=== PATIENT | male | born 1930 | race Caucasian/White ===

== ENCOUNTER 2016-12-04 14:43 | Inpatient (IN) | payer MEDICARE, BC ==
[~2016-12-04] VITALS: Ht 152.4 cm; Wt 75.0 kg
--- NOTE | ~2016-12-04 | CN ---
Consultation Report [facility] [address] [place]. [address] NAME: ANJELICA LINDQUIST : 32 STATUS : ADM IN PAT#: [id number] AGE: 86 ADM/REG DATE : 12/04/16 MR#: [id number] REPORT SERV DATE: 12/05/16 DICTATED BY: DATE: REPORT STATUS : Draft TRANSCRIBED BY: MODL DATE: 12/05/16 NEUROLOGY CONSULTATION DATE OF CONSULTATION: 12/05/2016 REASON FOR CONSULT: New onset seizure. HISTORY OF PRESENT ILLNESS: This is an 86-year-old male with recent pacemaker placement on 11/27/2016. The patient was doing well and subsequently discharged home when the patient subsequently felt pleuritic chest pain. The patient came to the hospital for evaluation and was noted to have possible pacer wire dislodged and was admitted to the hospital, however, while in the emergency room, the patient has had acute episodes of feeling dizzy, described the sensation as room spinning and vertigo type of sensation with associated nausea and vomiting. The patient subsequently lost consciousness and was noted to have witnessed generalized tonic colonic kind of seizure and the patient reports regaining consciousness about 10 to 15 minutes later with associated drowsiness. The patient denies any current symptoms and denies any weakness or numbness. At the time of evaluation, the patient denies previous seizure in the past, however, reports a history of longstanding atrial fibrillation with apparent multiple episodes of loss of consciousness, previously attributed to atrial fibrillation. 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 The patient prior to the hospitalization was not noted to have any other recent illness, fever, chills, nausea, vomiting, chest pain, or shortness of breath and no recent changes in medication was noted. ALLERGIES: THE PATIENT REPORTS ALLERGY TO CODEINE WELL HYDROCODONE. REVIEW OF SYSTEMS: Negative except for those mentioned in the HPI. SOCIAL HISTORY: There is a question of previous tobacco usage, but no current alcohol or illicit drug usage. No current tobacco usage. PAST MEDICAL HISTORY: The patient's past medical history is significant for tachycardia, bradycardia as well as a history of chronic atrial fibrillation, previously on Eliquis anticoagulation with the patient has had history of recent pacemaker placement as well as dislodged pacer wire from the recent pacemaker placement. The patient's CT scan does demonstrate some previous strokes. Also the patient denies any symptomatic strokes in the past. HOME MEDICATIONS: The patient's home medications consist of Tylenol; Norvasc; Eliquis; aspirin; Lipitor; vitamin D3; Lasix; Antivert; omeprazole; potassium; and Flomax. PHYSICAL EXAMINATION: Consultation Report [facility] [address] [place]. [address] NAME: ANJELICA LINDQUIST : 32 STATUS : ADM IN PAT#: [id number] AGE: 86 ADM/REG DATE : 12/04/16 MR#: [id number] REPORT SERV DATE: 12/05/16 DICTATED BY: DATE: REPORT STATUS : Draft TRANSCRIBED BY: MODL DATE: 12/05/16 VITAL SIGNS: At the time of evaluation, the patient was noted to have overnight vital signs with T-max of 97.8, heart rate of 62 to 85, respirations of 17 to 29, and blood pressure of 90 to 122 over 44 to 58. GENERAL: The patient is well developed, well nourished, in no acute distress. CARDIOVASCULAR EXAMINATION: Regular rate and rhythm. No carotid bruits were otherwise auscultated. PULMONARY: Examination was clear to auscultation bilaterally. NEUROLOGICAL EXAMINATION: Generally, the patient is alert, oriented to person, place, year, and month. Follows simple and 2-step commands. No dysarthria. No aphasia. Intact registration. Mild difficulties with recall. Cranial nerves 2 through 12, pupils equal, round, and reactive to light. Extraocular eye movement was noted to be intact with intact ekmqt-yc-gkpekq response. Reports symmetrical sensation, was noted to have mild facial asymmetry. Midline tongue. Normal palatal movement. Mild decreased hearing in bilateral ears. The patient demonstrated 4+/5 left upper extremity and left lower extremity strength with the patient demonstrated 5/5 right upper and right lower extremity strength which the patient reports is chronic; 1+ reflexes throughout. Reports symmetrical sensation in bilateral upper and lower extremities. Normal gggcjb-dw-wvqj examination without ataxia. Gait was deferred secondary to echocardiogram at the time of evaluation. LABORATORY STUDIES: Demonstrated white blood cell count of 16.1, hemoglobin of 10.6, hematocrit of 31.1, and platelet count of 239. Chemistry panel: Sodium 137, potassium 5.0, chloride 104, bicarb 20, BUN of 43, creatinine of 2.52, glucose of 196, calcium of 8.1, and magnesium 2.2. Urinalysis demonstrated negative leukocyte esterase, negative nitrite. CT scan of the brain from 12/04/2016, on hospital admission was reviewed. The patient does demonstrate mild generalized atrophy as well as previous stroke and possible subacute left parietal stroke. No hemorrhage was otherwise noted. IMPRESSION: 1. Seizure. The patient complained of vertigo sensation prior. 2. Clinical seizures. The patient denies any prior history of seizure disorders in the past and no history of seizure medication usage. The patient currently does have pacer wire dislodged and we will have Eliquis on hold for 48 hours prior to surgical intervention. Question of possible symptomatic seizures. We will check EEG. We will start the patient on Keppra 500 mg IV b.i.d. for now. RECOMMENDATIONS: 1. Keppra 500 mg IV b.i.d. 2. EEG. 3. Please consider possible heparin drip while the patient is off Eliquis for CVA prevention. [facility]/JASMINA Consultation Report [place] [id number] [facility] [place]. [address] NAME: ANJELICA LINDQUIST : 32 STATUS : ADM IN [facility]#: [id number] AGE: 86 ADM/REG DATE : 12/04/16 MR#: [id number] REPORT SERV DATE: 12/05/16 DICTATED BY: DATE: REPORT STATUS : Draft TRANSCRIBED BY: JASMINA DATE: 12/05/16 Cuauhtemoc Bradshaw MD / [id number] CC: Yoshi Worthy Jr., M.D.
--- NOTE | ~2016-12-04 | HP ---
History And Physical [address] [place]. [address] NAME: ANJELICA LINDQUIST : 32 STATUS : ADM IN [facility]#: [id number] AGE: 86 ADM/REG DATE : 12/04/16 MR#: [id number] REPORT SERV DATE: 12/04/16 DICTATED BY: ERROL JERONIMO JR. DATE: 12/04/16 REPORT STATUS : Draft TRANSCRIBED BY: MODAshley DATE: 12/04/16 DATE OF ADMISSION: 12/04/2016 [facility] ROUTER SETTER: Ross Sousa M.D. EP: Dr. Pickard. REASON FOR CONSULTATION: Consultation in emergency room requested regarding abnormal EKG with pacemaker malfunction. HISTORY OF PRESENT ILLNESS: 86-year-old white male with tachycardia, bradycardia, history of chronic atrial fibrillation, currently on Eliquis anticoagulation. CT of the brain today showed old strokes and possibly a recent stroke. No neurological deficits to go along with anything acute neurologically. He had an uneventful placement of a right ventricular lead Medtronic VVI mode 11/27/2016. Postprocedure chest x-ray unremarkable. Chest x-ray today shows movement of the lead laterally to the left and new blunting of costophrenic angle consistent with pleural effusion reaction, etc. He was doing well post pacemaker procedure until last night when he became aware of a sharp pleuritic pain at the left lower chest area. Hurt with cough and deep breathing. This morning, he became dizzy and presyncopal, and EMS was summoned. He is normally hypertensive, but blood pressure today was 108/65. Rhythm is irregular and chronic atrial fibrillation, and the pacemaker is under sensing and not pacing. ALLERGIES: TO CODEINE AND HYDROCODONE. SOCIAL HISTORY: ? old cigarette smoker. No illicit drugs. MEDICATIONS: Home medication list reviewed. SOCIAL HISTORY: Supportive family. REVIEW OF SYSTEMS: As above. All else negative or noncontributory. PHYSICAL EXAMINATION: PHYSICAL EXAMINATION: VITAL SIGNS: Blood pressure 108/65, pulse is irregularly irregular with rate controlled atrial fibrillation, respirations 18, afebrile, and saturation 98% on room air. HEENT: No xanthelasma. NECK: No JVD at 30 degrees, no thyromegaly, no carotid bruit. LUNGS: Clear to auscultation and percussion. History And Physical [address] [place]. [address] NAME: ANJELICA LINDQUIST : 32 STATUS : ADM IN [facility]#: [id number] AGE: 86 ADM/REG DATE : 12/04/16 MR#: [id number] REPORT SERV DATE: 12/04/16 DICTATED BY: ERROL JERONIMO JR. DATE: 12/04/16 REPORT STATUS : Draft TRANSCRIBED BY: MODAshley DATE: 12/04/16 COR: No thrills, heaves, normal S1, S2. No gallop. No rub. No murmur. ABD: Soft, nontender, no hepatosplenomegaly, no mass. EXT: Without edema or pulse deficit. MS: Back without spine or costovertebral angle tenderness. NEURO: Symmetric findings. DISCUSSION: Pleuritic chest pain last night followed by a presyncopal episode this morning. EMS summoned. The patient is now in the emergency room with EKG showing undersensing and lack of pacing of the right ventricular lead with a chest x-ray, compared to the postprocedure 11/27/2016 film showing lateral displacement of the lead with new fluid/pleural reaction in the left base. CT scan has been ordered, and I have contacted CV Surgery to be aware of the situation and to follow him tonight as needed. Discussed with Dr. Pickard as well. We will hold Eliquis. Keep him n.p.o. after midnight. CCU observation tonight. Watch for signs of pericardial tamponade. Currently, no evidence of acute pericardial tamponade. Echocardiogram in the morning. LISA/JASMINA Errol Jeronimo Jr., M.D. / [id number] CC: Yoshi Worthy Jr., M.D.
--- NOTE | ~2016-12-04 | CN ---
Consultation Report [facility] [address] [place]. [address] NAME: ANJELICA LINDQUIST : 32 STATUS : ADM IN PAT#: [id number] AGE: 86 ADM/REG DATE : 12/04/16 MR#: [id number] REPORT SERV DATE: 12/06/16 DICTATED BY: RUBEN CAPUTO DATE: 12/06/16 REPORT STATUS : Draft TRANSCRIBED BY: MODL DATE: 12/06/16 DATE OF CONSULTATION: HISTORY OF PRESENT ILLNESS: An 86-year-old white male, we are asked to come see postoperatively for ventilatory management as well as complexity of medical care. The patient was admitted on 12/04/2016. He was found to have a left-sided hemothorax and acute blood loss anemia from a pacer lead from the RV perforating the myocardium into the pericardial and pleural space. He had an uneventful pacer placed on 11/27/2016 and was able to go home when he presented with the above problems. The patient has significant blood loss anemia with hemoglobin going down to 5. He had received a total of, my count, 5 units of packed red blood cells. He had the pacer interrogated initially, which was reporting under sensing and also had a complication of a seizure on this admission as well, and Neurology was following and put the patient on Keppra. A delay for surgery did occur to allow the Eliquis to get out of the system that he was on. By 12/05/2016, he had removal of the RV lead via mini left thoracotomy, and he had a left chest tube placed in the left pleural space with bloody evacuated. The patient is still on the ventilator currently. He does have complication also with difficulty to place Sarkar and Urology tried to place it but unsuccessful. They suspect a hypospadias along with his BPH, which is complicating things. He is supposed to go to IR for a suprapubic catheter. Current drips include Precedex, dopamine for bradycardia, insulin, propofol. He does have a right radial art line and a right internal jugular vein triple-lumen catheter. White blood cell count is elevated, but no evidence of fever. REVIEW OF SYSTEMS: Unable to obtain. PAST MEDICAL HISTORY: Atrial fibrillation with history of pacemaker placed 11/27/2016, chronic kidney disease, hypertension, dyslipidemia, BPH. ALLERGIES: CODEINE, HYDROCODONE. HOME MEDICATIONS: Reviewed. SOCIAL HISTORY: Former smoker. Lives in [place], [place]. 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 FAMILY HISTORY: No evidence of renal disease in the family. PHYSICAL EXAMINATION: VITAL SIGNS: Per nursing flow sheet. GENERAL: In no acute distress. NEURO: Sedated. HEENT: Normocephalic and atraumatic. NECK: Trachea midline. Consultation Report [address] [place]. [address] NAME: ANJELICA LINDQUIST : 32 STATUS : ADM IN [facility]#: [id number] AGE: 86 ADM/REG DATE : 12/04/16 MR#: [id number] REPORT SERV DATE: 12/06/16 DICTATED BY: RUBEN CAPUTO DATE: 12/06/16 REPORT STATUS : Draft TRANSCRIBED BY: JASMINA DATE: 12/06/16 HEART: Bradycardia with atrial fibrillation. No obvious murmurs. CHEST: There is a left chest tube in place draining bloody looking fluid. LUNGS: Clear anteriorly. No wheezes. Ventilator settings reviewed. GI: Soft, nontender, nondistended. EXTREMITIES: No obvious edema or cyanosis. : There is no Sarkar in place. LABORATORY DATA: Labs and radiology studies reviewed. ASSESSMENT AND PLAN: 1. Postoperative respiratory failure. 2. Myocardial perforation secondary to pacer wire. 3. Hemothorax. 4. Bradycardia. 5. Atrial fibrillation. 6. Thyroid nodule. 7. Acute on chronic kidney disease. 8. Acute blood loss anemia. 9. Leukocytosis. 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 11.Old stroke. 12.Seizure x1. Provided supportive respiratory care for now. Currently comfortable on propofol. Supposed to go to Interventional Radiology for a suprapubic catheter. We will work towards extubation with breathing trial starting tomorrow. Follow with chest x-ray in the morning. Diuretics and volume status are being taken care by Nephrology. I will order a thyroid ultrasound given the large thyroid nodule, which will likely to have further workup as an outpatient. Current H and H are stable. No signs of active infection at this point in time despite the leukocytosis. We will follow this. CEP/MODL Ruben Caputo DO / [id number] CC: Senthil Jeronimo Jr., M.D.
--- NOTE | ~2016-12-04 | EEG ---
Electroencephalogram [facility] [address] [place]. [address] NAME: ANJELICA LINDQUIST : 32 STATUS : ADM IN PAT#: [id number] AGE: 86 ADM/REG DATE : 12/04/16 MR#: [id number] REPORT SERV DATE: 12/05/16 DICTATED BY: DATE: REPORT STATUS : Draft TRANSCRIBED BY: MODL DATE: 12/05/16 CLINICAL INDICATIONS: Seizure. DISCUSSION: This EEG was performed using 10/20 electrode placement system. During the EEG study, symmetric background activity was noted with predominant occipital rhythm of roughly 9-10 hertz. Photic stimulation was performed with appropriate driving response. Hyperventilation was not performed secondary to patient's cardiac history. During the EEG study, the patient achieved drowsy state. No focal abnormalities, seizure activity, or seizure discharge was otherwise noted. INTERPRETATION: This EEG study obtained during awake and drowsy state may be considered within normal limits. No focal abnormalities, seizure activity, or seizure discharge was seen. Of note, normal EEG does not preclude the diagnosis of seizure disorder. Clinical correlation is recommended. [facility]/MODL Cuauhtemoc Bradshaw MD / [id number] CC: Yoshi Worthy Jr., M.D.
--- NOTE | ~2016-12-04 | CN ---
Consultation Report [facility] [address] [place]. [address] NAME: ANJELICA LINDQUIST : 32 STATUS : ADM IN [facility]#: [id number] AGE: 86 ADM/REG DATE : 12/04/16 MR#: [id number] REPORT SERV DATE: 12/06/16 DICTATED BY: SHAKA HALEY JR. DATE: 12/06/16 REPORT STATUS : Draft TRANSCRIBED BY: MODAshley DATE: 12/06/16 CONSULTATION DATE OF CONSULTATION: 12/06/2016 CHIEF COMPLAINT: Urinary retention, inability to place Sarkar. HISTORY OF PRESENT ILLNESS: Mr. Lindquist is an 86-year-old gentleman who is followed generally in [facility] by Nephrology, whose baseline creatinine has been between 1.3 and 1.6. His creatinine jumped up to 2.5 last evening. He underwent pacemaker placement on 11/27/2016. He was readmitted last night with acute blood loss anemia. CT scan showed a new left hemothorax with a pacing wire in the pleural space. He was taken to the operating room, and at that time, a Sarkar catheter was attempted, but was unsuccessful. I was consulted postoperatively to place a Sarkar catheter. I did speak to his son about his past urologic history, and according to the patient's son, he sees Dr. Weinberg in [place] for his urologic care. He does take tamsulosin for BPH. PAST MEDICAL HISTORY: Significant for chronic kidney disease, atrial fibrillation, hypertension, hyperlipidemia, BPH without TURP in the past. HOME MEDICATIONS: Norvasc, Eliquis, aspirin, Lipitor, vitamin D3, Lasix, meclizine, Prilosec, potassium, and Flomax. FAMILY HISTORY: Essentially negative. SOCIAL HISTORY: He is a remote smoker. He is a . He lives in [place], [place]. He is retired from the [employer]. REVIEW OF SYSTEMS: Unable to be obtained due patient being intubated currently. PHYSICAL EXAMINATION: VITAL SIGNS: He is afebrile, and his vital signs are stable. HEENT: Normocephalic and atraumatic. He is intubated and resting quietly. NECK: Symmetric. CHEST: Clear to auscultation bilaterally. HEART: Regular rate and rhythm. ABDOMEN: Soft, nontender, nondistended without palpable hernias. He does not have a palpable bladder. EXTREMITIES: Warm without cyanosis, clubbing, or edema. GENITOURINARY: The penile exam reveals what appears to be a hypospadias deformity. I was unable to identify a meatus of the urethra. I attempted to cannulate this with lacrimal duct probes without success. I am unsure if this was caused by previous attempts at Sarkar catheter placement or if this is his baseline meatus, however, without the ability to Consultation Report [address] [place]. [address] NAME: ANJELICA LINDQUIST : 32 STATUS : ADM IN [facility]#: [id number] AGE: 86 ADM/REG DATE : 12/04/16 MR#: [id number] REPORT SERV DATE: 12/06/16 DICTATED BY: SHAKA HALEY JR. DATE: 12/06/16 REPORT STATUS : Draft TRANSCRIBED BY: MODL DATE: 12/06/16 identify a meatus or place a Sarkar, I was unable to proceed. LABORATORY DATA: Electrolytes are within normal limits. Creatinine 2.5, platelet count 239, white count 16,000, hemoglobin 10.6. ASSESSMENT: Urinary retention with the need for diuresis and urine output monitoring. RECOMMENDATIONS: I spoke to the patient's family and informed them of the situation and recommended that he have a suprapubic tube temporarily until we were able to extubate him and manage his other acute condition, and then manage his meatal issue at a later date either here in [place] or with his urologist in [place], Dr. Weinberg. I spoke to Dr. Josué Troncoso in the Interventional Radiology Department. They will proceed with suprapubic tube placement under either CT or ultrasound guidance today. DANIA/JASMINA Shaka Halye Jr., M.D. / [id number] CC: Senthil Jeronimo Jr., M.D.
--- NOTE | ~2016-12-04 | OP ---
Record Of Operation [facility] [address] [place]. [address] NAME: ANJELICA LINDQUIST : 32 STATUS : DIS IN PAT#: [id number] AGE: 86 ADM/REG DATE : 12/04/16 MR#: [id number] REPORT SERV DATE: 12/13/16 DICTATED BY: VIC RODRIGUEZ DATE: 12/12/16 REPORT STATUS : Draft TRANSCRIBED BY: MODL DATE: 12/12/16 DATE OF PROCEDURE: 12/05/2016 PREOPERATIVE DIAGNOSIS: Right ventricular pacer lead migrating into left pleural space with hemorrhagic left pleural effusion. POSTOPERATIVE DIAGNOSIS: Right ventricular pacer lead migrating into left pleural space with hemorrhagic left pleural effusion. PROCEDURE: Left anterior mini thoracotomy with removal of pacer lead and over-sew of right ventricular epicardial bleed with chest tube placement and evacuation of left hemothorax. STOCK CRANE OPERATOR: Tabatha. ANESTHESIOLOGIST: Tyson Roque M.D. COMPLICATIONS: None. CHEST TUBES: X1. CONDITION: Improved to ICU. HISTORY: The patient is an 86-year-old gentleman, who had undergone a single chamber ventricular permanent pacemaker by Dr. Pickard at [facility] approximately 1 week prior to intervention. He had presented to the emergency department on the evening of the with left pleuritic chest pain. CT scan showed a left hemothorax and the pacer lead migrating through the right ventricle and into the left pleural space. The patient was extremely hemodynamically stable at this point with a good hemoglobin. The patient was on Eliquis and decision was made to wait 48 hours prior to surgery. However, the patient had a progressive drop in his hemoglobin and was brought emergently to the operating room on the evening of the . PROCEDURE IN DETAIL: After informed consent was obtained, the patient was brought to the operating room, laid in supine position. General anesthesia was induced. The patient was prepped and draped in normal fashion. Incision was made over the approximate 9th to 10th intercostal space after using fluoroscopic guidance to pinpoint the lead placement. A rib knife blade polisher was placed and the lead encountered traversing through the epicardium of the right ventricle through the pericardial space, the pericardium was adherent to the epicardium, and the lead was out into the left pleural space. There was copious amount of clotted blood in the left chest. Pacer pocket was then opened. A pursestring pledgeted suture was placed around the exit site from the pericardium and the lead removed and stitch tied down with good surgical hemostasis. As much clotted blood from the left chest was then evacuated both directly and through suction irrigation. An angled left chest tube was placed. The skin and subcuticular tissue were then closed over the rib space and the pacer pocket closed as well. Overall, the patient tolerated procedure well, was transported to the ICU in improved condition. Record Of Operation [address] [place]. [address] NAME: ANJELICA LINDQUIST : 32 STATUS : DIS IN PAT#: [id number] AGE: 86 ADM/REG DATE : 12/04/16 MR#: [id number] REPORT SERV DATE: 12/13/16 DICTATED BY: VIC RODRIGUEZ DATE: 12/12/16 REPORT STATUS : Draft TRANSCRIBED BY: JASMINA DATE: 12/12/16 CCR/JASMINA Vic Rodriguez M.D. / [id number] CC: Yoshi Worthy Jr., M.D. [facility]
--- NOTE | ~2016-12-04 | CN ---
Consultation Report [facility] [address] [place]. [address] NAME: ANJELICA LINDQUIST : 34 STATUS : ADM IN PAT#: [id number] AGE: 86 ADM/REG DATE : 12/04/16 MR#: [id number] REPORT SERV DATE: 12/06/16 DICTATED BY: KIA KASPER DATE: 12/05/16 REPORT STATUS : Draft TRANSCRIBED BY: MODL DATE: 12/05/16 NEPHROLOGY CONSULT DATE OF CONSULTATION: 12/05/2016 REQUESTING PHYSICIAN: Dr. Pickard. REASON FOR CONSULT: Chronic kidney disease with acute kidney injury. HISTORY OF PRESENT ILLNESS: Mr. Lindquist is a very pleasant 86-year-old white male, who is followed by Dr. Schmidt of Nephrology in [facility]. He appears to have a baseline creatinine between 1.3 and 1.6. Records are not available at the time of today's dictation. He underwent pacemaker placement on 11/27/2016 when his creatinine was 1.6. He was admitted last night with acute blood loss anemia. CT scan showed a new left hemothorax with a pacing wire in the pleural space. His creatinine which was 1.6 last night is 2.5 this morning. His hemoglobin which was 13.4 on 11/27/2016 is now 10.6. He is not on pressors, but did have some relative hypotension upon presentation with systolic blood pressures in the low 100s. Urinalysis has shown no blood or protein. INR today is 1.6. PAST MEDICAL HISTORY: 1. Chronic kidney disease, baseline creatinine 1.3 to 1.6, followed by Dr. Schmidt in [place], [place]. 2. Atrial fibrillation, on Eliquis, status post pacemaker on 11/27/2016. 3. Hypertension. 4. Hyperlipidemia. 5. BPH without TURP. HOME MEDICATIONS: Norvasc 10 mg at bedtime, Eliquis 5 mg b.i.d., aspirin 81 mg daily, Lipitor 10 mg at bedtime, vitamin D3, Lasix 40 mg daily, meclizine, Prilosec, potassium, and Flomax. FAMILY HISTORY: No ESRD. SOCIAL HISTORY: Former remote smoker. . Lives in [place], [place]. 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 REVIEW OF SYSTEMS: Please see HPI for pertinent details. PHYSICAL EXAMINATION: VITAL SIGNS: Temperature 97.6, pulse 75, respirations 27, blood pressure 132/61, 98% sat 1 L per nasal cannula, 925 mL of intake with 400 mL of output recorded. GENERAL: He is a pleasant elderly white male, who is awake, alert, oriented, cooperative Consultation Report [address] [place]. [address] NAME: ANJELICA LINDQUIST : 34 STATUS : ADM IN [facility]#: [id number] AGE: 86 ADM/REG DATE : 12/04/16 MR#: [id number] REPORT SERV DATE: 12/06/16 DICTATED BY: KIA KASPER DATE: 12/05/16 REPORT STATUS : Draft TRANSCRIBED BY: JASMINA DATE: 12/05/16 with the exam. NEURO: Grossly nonfocal. He is in no distress. Lying in a hospital bed, accompanied by family. HEENT: Sclerae without icterus. Conjunctivae not injected. Oropharynx is clear. Mucous membranes are dry. NECK: No JVD. LUNGS: He has bilateral rhonchi with decreased breath sounds on the left side. No dyspnea, but tachypnea is noted. CHEST: He has a paced rhythm without rub. Left chest pacemaker site is clean. ABDOMEN: Soft, nontender, nondistended. Bowel sounds present throughout. No rebound, guarding, peritoneal signs. EXTREMITIES: Show no edema. SKIN: Shows no rash. : Deferred. There is no Sarkar catheter. MUSCULOSKELETAL: Shows no tenosynovitis or gout. Mood and affect are appropriate. LABORATORY DATA: Sodium 137, potassium 5, bicarb 20, anion gap 13, BUN 43, creatinine 2.5, GFR 23, calcium 8.1, magnesium 2.2, albumin 3.7. Liver function tests normal. White count 58051 without eos, hemoglobin 10.6, platelets 239,000. INR 1.6. ASSESSMENT AND PLAN: Mr. Lindquist has chronic kidney disease with baseline creatinine of 1.3 to 1.6, presents with borderline oliguric acute kidney injury in the setting of acute blood loss anemia, left hemothorax, status post pacemaker, 11/27/2016, benign prostatic hyperplasia, new onset seizures, non-anion gap metabolic acidosis, and leukocytosis. I suspect his acute kidney injury is most likely related to acute blood loss anemia causing acute tubular necrosis and renal hypoperfusion due to relative hypotension on admission. Decreased IV fluids challenge with Bumex dose, bicarb IV, check bladder scan. No ERLINDA inhibitor or ARB at this time. Watch labs. Supportive care. Avoid nephrotoxic medications. Family updated in room and agree with treatment plan. Hopefully, dialysis can be avoided. We will follow closely with you. Appreciate consult. JOSE/JASMINA Kia Kasper M.D. / [id number] CC: Yoshi Worthy Jr., M.D. Consultation Report [address] [place]. [address] NAME: ANJELICA LINDQUIST : 34 STATUS : ADM IN [facility]#: [id number] AGE: 86 ADM/REG DATE : 12/04/16 MR#: [id number] REPORT SERV DATE: 12/06/16 DICTATED BY: KIA KASPER DATE: 12/05/16 REPORT STATUS : Draft TRANSCRIBED BY: JASMINA DATE: 12/05/16 Robbie Schmidt MD
[~2016-12-04 14:43] MED LIST: ELIQUIS 5 MG TAB5 MG PO; FLOMAX4 PO; KLOR-CON M2020 MEQ PO; L40 PO; LIPITOR10 PO; MCZ25 PO; NORV10 PO; PRILO PO; ULTRAM50 PO; VITAMIN D31000 UNIT PO
[2016-12-04 17:17] LABS: ASCORBIC ACID (UR NOT ORDER) NEG (NEG); BILIRUBIN, URINE NEGATIVE (NEG); ER URINALYSIS TAT 0 Hrs 16 Mins; KETONE, URINE NEGATIVE (NEG); LEUKOCYTE ESTERASE(NOT OR NEG (NEG); NITRITE (URINE) NEG (NEG); WBC (NOT ORDERED) (RFLEX) 3 (0-5)
[2016-12-04 17:50] LABS: BASOPHILS 0.1 %; BASOPHILS ABSOLUTE 0.01 10/3/uL (0.0-0.16); EOSINOPHILS 0.3 %; EOSINOPHILS ABSOLUTE 0.03 10/3/uL (0.0-0.53); ER CBC TAT 0 Hrs 03 Mins; HEMATOCRIT 34.4 % (40.0-51.0); HEMOGLOBIN 11.6 g/dL (13.6-17.8); IMMATURE GRANULOCYTES 0.3 %; IMMATURE GRANULOCYTES ABSOLUTE 0.03 10/3/uL (0.0-0.11); LYMPHOCYTES 11.4 %; LYMPHOCYTES ABSOLUTE 1.07 10/3/uL (0.67-4.30); MANUAL DIFF NO %; MEAN CORPUS HGB CONC 33.7 g/dL (32.0-36.0); MEAN CORPUSCULAR HEMOGLOB 31.8 pg (26.0-34.0); MEAN CORPUSCULAR VOLUME 94.2 fL (80-100); MONOCYTES 5.4 %; MONOCYTES ABSOLUTE 0.51 10/3/uL (0.21-1.20); NEUTROPHILS 82.5 %; NEUTROPHILS ABSOLUTE 7.76 10/3/uL (2.02-8.40); PLATELET COUNT 239 10/3/uL (150-400); RBC DISTRIBUTION WIDTH 12.7 % (12.0-16.0); RED CELL COUNT 3.65 10/6/uL (4.7-6.1); WHITE BLOOD CELLS 9.4 10/3/uL (4.5-10.5)
[2016-12-04 18:01] LABS: INTERNATIONAL NORMAL RATI 1.5 UNITS (-); PARTIAL THROMBO TIME 35.2 SEC (22.5-37.2); PROTIME (NOT ORD) 18.3 SEC (12.0-14.5)
[2016-12-04 18:06] LABS: ALBUMIN 3.7 G/DL (3.5-5.0); DIRECT BILIRUBIN 0.2 MG/DL (0.0-0.4); INDIRECT BILIRUBIN(NOT ORDER) 0.6 MG/DL (0.1-0.9); TOTAL BILIRUBIN 0.8 MG/DL (0-1.2); TOTAL PROTEIN 8.4 G/DL (6.0-8.5)
[2016-12-04 18:08] LABS: CALCIUM, SERUM 8.6 MG/DL (8.5-10.4); CHEST PAIN PROFILE TAT 0 Hrs 21 Mins; CHLORIDE, SERUM 102 MMOL/L (96-112); CO2 (CARBON DIOXIDE) 26 MMOL/L (24-34); CREATININE 1.65 MG/DL (0.70-1.30); GFR AFRICAN AMERICAN 44 ML/MIN (>=60); GFR NON AFRICAN AMERICAN 38 ML/MIN (>=60); GLUCOSE, SERUM 138 MG/DL (60-99); POTASSIUM, SERUM 4.6 MMOL/L (3.5-5.3); SODIUM, SERUM 138 MMOL/L (135-148); TROPONIN I <0.02 NG/ML (<0.05)
[2016-12-04 18:09] LABS: BUN (BLOOD UREA NITROGEN) 33 MG/DL (6-23)
[2016-12-04] MEDS ORDERED: HALF81 PO (18:13)
[2016-12-04] MEDS ORDERED: ACET500CAP PO (18:16)
[2016-12-05 03:33] LABS: HEMOGLOBIN 10.4 g/dL (13.6-17.8)
[2016-12-05 03:34] LABS: HEMATOCRIT 29.6 % (40.0-51.0)
[2016-12-05 06:49] LABS: BASOPHILS 0.1 %; BASOPHILS ABSOLUTE 0.01 10/3/uL (0.0-0.16); EOSINOPHILS 0 %; HEMATOCRIT 31.1 % (40.0-51.0); HEMOGLOBIN 10.6 g/dL (13.6-17.8); IMMATURE GRANULOCYTES 0.6 %; IMMATURE GRANULOCYTES ABSOLUTE 0.09 10/3/uL (0.0-0.11); LYMPHOCYTES 7.2 %; LYMPHOCYTES ABSOLUTE 1.15 10/3/uL (0.67-4.30); MANUAL DIFF NO %; MEAN CORPUS HGB CONC 34.1 g/dL (32.0-36.0); MEAN CORPUSCULAR HEMOGLOB 31.1 pg (26.0-34.0); MEAN CORPUSCULAR VOLUME 91.2 fL (80-100); MEAN PLATELET VOLUME 9.4 fL (9.2-13.0); MONOCYTES 4.6 %; MONOCYTES ABSOLUTE 0.74 10/3/uL (0.21-1.20); NEUTROPHILS 87.5 %; NEUTROPHILS ABSOLUTE 14.09 10/3/uL (2.02-8.40); PLATELET COUNT 239 10/3/uL (150-400); RBC DISTRIBUTION WIDTH 14.1 % (12.0-16.0); RED CELL COUNT 3.41 10/6/uL (4.7-6.1); WHITE BLOOD CELLS 16.1 10/3/uL (4.5-10.5)
[2016-12-05 06:52] LABS: INTERNATIONAL NORMAL RATI 1.6 UNITS (-); PARTIAL THROMBO TIME 32.6 SEC (22.5-37.2); PROTIME (NOT ORD) 19.1 SEC (12.0-14.5)
[2016-12-05 07:00] LABS: CALCIUM, SERUM 8.1 MG/DL (8.5-10.4); CHLORIDE, SERUM 104 MMOL/L (96-112); SODIUM, SERUM 137 MMOL/L (135-148)
[2016-12-05 07:01] LABS: BUN (BLOOD UREA NITROGEN) 43 MG/DL (6-23); CO2 (CARBON DIOXIDE) 20 MMOL/L (24-34); CREATININE 2.52 MG/DL (0.70-1.30); GFR AFRICAN AMERICAN 26 ML/MIN (>=60); GFR NON AFRICAN AMERICAN 23 ML/MIN (>=60); GLUCOSE, SERUM 196 MG/DL (60-99)
[2016-12-05 13:29] LABS: HEMATOCRIT 26.5 % (40.0-51.0); HEMOGLOBIN 9.1 g/dL (13.6-17.8)
[2016-12-05 20:53] LABS: HEMATOCRIT 14.8 % (40.0-51.0)
[2016-12-06 00:35] LABS: BE (BASE EXCESS) -2.2 MEQ/L (0 +/- 2.5); CARBOXYHEMOGLOBIN 0.5 % (0-3); HCO3 (ACTUAL BICARBONATE) 22.3 MEQ/L (23-27); HEMOBLOGIN CONTENT 14.6 G/DL (14-18); INSTRUMENT SERIAL # 11843; METHEMOGLOBIN 0.4 % (0-3); MODE SIMV; O2 CONTENT 21.1 VOL% (18-24); OPERATOR ID 32193; PCO2 (CO2 TENSION) 37 MMHG (35-45); PO2 (O2 TENSION) 384 MMHG (79-93); SAMPLE Arterial; TIDAL VOLUME 600 ML; pH 7.39 (7.37-7.43)
[2016-12-06 01:27] LABS: BASOPHILS 0 %; EOSINOPHILS 0 %; IMMATURE GRANULOCYTES 0.6 %; IMMATURE GRANULOCYTES ABSOLUTE 0.08 10/3/uL (0.0-0.11); LYMPHOCYTES 10.5 %; LYMPHOCYTES ABSOLUTE 1.43 10/3/uL (0.67-4.30); MEAN CORPUS HGB CONC 34.1 g/dL (32.0-36.0); MEAN CORPUSCULAR HEMOGLOB 29.6 pg (26.0-34.0); MEAN PLATELET VOLUME 9.8 fL (9.2-13.0); MONOCYTES ABSOLUTE 1.36 10/3/uL (0.21-1.20); NEUTROPHILS 78.9 %; NEUTROPHILS ABSOLUTE 10.79 10/3/uL (2.02-8.40); RBC DISTRIBUTION WIDTH 15.9 % (12.0-16.0); WHITE BLOOD CELLS 13.7 10/3/uL (4.5-10.5)
[2016-12-06 01:31] LABS: HEMATOCRIT 40.2 % (40.0-51.0); HEMOGLOBIN 13.7 g/dL (13.6-17.8); MANUAL DIFF NO %; MEAN CORPUSCULAR VOLUME 86.8 fL (80-100); PLATELET COUNT 149 10/3/uL (150-400); RED CELL COUNT 4.63 10/6/uL (4.7-6.1)
[2016-12-06 01:36] LABS: INTERNATIONAL NORMAL RATI 1.4 UNITS (-); PARTIAL THROMBO TIME 27.1 SEC (22.5-37.2); PROTIME (NOT ORD) 17.2 SEC (12.0-14.5)
[2016-12-06 01:40] LABS: CALCIUM, SERUM 7.3 MG/DL (8.5-10.4); CHLORIDE, SERUM 106 MMOL/L (96-112); CREATININE 2.24 MG/DL (0.70-1.30); GFR AFRICAN AMERICAN 30 ML/MIN (>=60); GFR NON AFRICAN AMERICAN 26 ML/MIN (>=60); GLUCOSE, SERUM 173 MG/DL (60-99); POTASSIUM, SERUM 4.6 MMOL/L (3.5-5.3); SODIUM, SERUM 140 MMOL/L (135-148)
[2016-12-06 01:43] LABS: BUN (BLOOD UREA NITROGEN) 47 MG/DL (6-23); CO2 (CARBON DIOXIDE) 26 MMOL/L (24-34)
[2016-12-06 03:33] LABS: CARBOXYHEMOGLOBIN 0.8 % (0-3); HCO3 (ACTUAL BICARBONATE) 20.4 MEQ/L (23-27); HEMOBLOGIN CONTENT 15.6 G/DL (14-18); INSTRUMENT SERIAL # 11843; METHEMOGLOBIN 0.3 % (0-3); MODE SIMV; O2 CONTENT 20.1 VOL% (18-24); OPERATOR ID 23712; PCO2 (CO2 TENSION) 36 MMHG (35-45); PO2 (O2 TENSION) 67 MMHG (79-93); SAMPLE Arterial; TIDAL VOLUME 600 ML; pH 7.38 (7.37-7.43)
[2016-12-06 05:34] LABS: BASOPHILS 0.1 %; BASOPHILS ABSOLUTE 0.01 10/3/uL (0.0-0.16); EOSINOPHILS 0 %; HEMATOCRIT 44.1 % (40.0-51.0); HEMOGLOBIN 15.1 g/dL (13.6-17.8); IMMATURE GRANULOCYTES 0.3 %; IMMATURE GRANULOCYTES ABSOLUTE 0.04 10/3/uL (0.0-0.11); LYMPHOCYTES 7.8 %; LYMPHOCYTES ABSOLUTE 1.24 10/3/uL (0.67-4.30); MEAN CORPUS HGB CONC 34.2 g/dL (32.0-36.0); MEAN CORPUSCULAR HEMOGLOB 29.7 pg (26.0-34.0); MEAN CORPUSCULAR VOLUME 86.8 fL (80-100); MEAN PLATELET VOLUME 9.5 fL (9.2-13.0); MONOCYTES 4.2 %; MONOCYTES ABSOLUTE 0.66 10/3/uL (0.21-1.20); NEUTROPHILS 87.6 %; NEUTROPHILS ABSOLUTE 13.92 10/3/uL (2.02-8.40); PLATELET COUNT 136 10/3/uL (150-400); RBC DISTRIBUTION WIDTH 16.3 % (12.0-16.0); RED CELL COUNT 5.08 10/6/uL (4.7-6.1); WHITE BLOOD CELLS 15.9 10/3/uL (4.5-10.5)
[2016-12-06 05:39] LABS: MANUAL DIFF NO %
[2016-12-06 05:42] LABS: INTERNATIONAL NORMAL RATI 1.3 UNITS (-); PARTIAL THROMBO TIME 26.2 SEC (22.5-37.2)
[2016-12-06 05:45] LABS: BUN (BLOOD UREA NITROGEN) 47 MG/DL (6-23); CALCIUM, SERUM 7.5 MG/DL (8.5-10.4); CHLORIDE, SERUM 109 MMOL/L (96-112); CO2 (CARBON DIOXIDE) 24 MMOL/L (24-34); CREATININE 2.23 MG/DL (0.70-1.30); GFR AFRICAN AMERICAN 30 ML/MIN (>=60); GFR NON AFRICAN AMERICAN 26 ML/MIN (>=60); PHOSPHORUS, SERUM 3.4 MG/DL (2.5-4.5); POTASSIUM, SERUM 3.7 MMOL/L (3.5-5.3); SODIUM, SERUM 145 MMOL/L (135-148)
[2016-12-06 05:50] LABS: ALBUMIN 2.8 G/DL (3.5-5.0); GLUCOSE, SERUM 80 MG/DL (60-99)
[2016-12-06 12:30] LABS: HEMATOCRIT 41.6 % (40.0-51.0); HEMOGLOBIN 14.3 g/dL (13.6-17.8); MEAN CORPUS HGB CONC 34.4 g/dL (32.0-36.0); MEAN CORPUSCULAR HEMOGLOB 29.7 pg (26.0-34.0); MEAN CORPUSCULAR VOLUME 86.3 fL (80-100); MEAN PLATELET VOLUME 9.7 fL (9.2-13.0); PLATELET COUNT 130 10/3/uL (150-400); RBC DISTRIBUTION WIDTH 16.7 % (12.0-16.0); RED CELL COUNT 4.82 10/6/uL (4.7-6.1); WHITE BLOOD CELLS 20.9 10/3/uL (4.5-10.5)
[2016-12-06 12:32] LABS: MANUAL DIFF YES %
[2016-12-06 12:42] LABS: BUN (BLOOD UREA NITROGEN) 46 MG/DL (6-23); CALCIUM, SERUM 7.5 MG/DL (8.5-10.4); CHLORIDE, SERUM 108 MMOL/L (96-112); CO2 (CARBON DIOXIDE) 25 MMOL/L (24-34); CREATININE 2.04 MG/DL (0.70-1.30); GFR AFRICAN AMERICAN 34 ML/MIN (>=60); GFR NON AFRICAN AMERICAN 29 ML/MIN (>=60); POTASSIUM, SERUM 3.7 MMOL/L (3.5-5.3); SODIUM, SERUM 140 MMOL/L (135-148)
[2016-12-06 12:43] LABS: GLUCOSE, SERUM 164 MG/DL (60-99)
[2016-12-06 13:52] LABS: BAND NEUTROPHILS 11 %; LYMPHOCYTES 5 %; LYMPHOCYTES ABSOLUTE (CALC) 1.05 10/3/uL (0.67-4.30); NEUTROPHILS ABSOLUTE (CALC) 19.86 10/3/uL (2.02-8.40); PLATELET ESTIMATE SLT DEC (ADEQUATE); RBC MORPHOLOGY NORM (NORMAL); SEGMENTED NEUTROPHIL (0) 84 %; TOTAL NUCLEATED CELLS 100
[2016-12-07 04:04] LABS: BASOPHILS 0.1 %; BASOPHILS ABSOLUTE 0.01 10/3/uL (0.0-0.16); EOSINOPHILS 0.1 %; EOSINOPHILS ABSOLUTE 0.02 10/3/uL (0.0-0.53); HEMATOCRIT 41.2 % (40.0-51.0); HEMOGLOBIN 14.4 g/dL (13.6-17.8); IMMATURE GRANULOCYTES 0.5 %; LYMPHOCYTES 8.6 %; LYMPHOCYTES ABSOLUTE 1.61 10/3/uL (0.67-4.30); MEAN CORPUSCULAR HEMOGLOB 30.4 pg (26.0-34.0); MEAN CORPUSCULAR VOLUME 86.9 fL (80-100); MEAN PLATELET VOLUME 9.1 fL (9.2-13.0); MONOCYTES 9.2 %; MONOCYTES ABSOLUTE 1.71 10/3/uL (0.21-1.20); NEUTROPHILS 81.5 %; NEUTROPHILS ABSOLUTE 15.22 10/3/uL (2.02-8.40); PLATELET COUNT 122 10/3/uL (150-400); RBC DISTRIBUTION WIDTH 16.5 % (12.0-16.0); RED CELL COUNT 4.74 10/6/uL (4.7-6.1); WHITE BLOOD CELLS 18.7 10/3/uL (4.5-10.5)
[2016-12-07 04:05] LABS: MANUAL DIFF NO %
[2016-12-07 04:27] LABS: ALBUMIN 2.4 G/DL (3.5-5.0); CALCIUM, SERUM 7.8 MG/DL (8.5-10.4); CHLORIDE, SERUM 110 MMOL/L (96-112); CO2 (CARBON DIOXIDE) 24 MMOL/L (24-34); POTASSIUM, SERUM 3.9 MMOL/L (3.5-5.3); SODIUM, SERUM 145 MMOL/L (135-148)
[2016-12-07 04:31] LABS: BE (BASE EXCESS) 0.6 MEQ/L (0 +/- 2.5); CARBOXYHEMOGLOBIN 0.4 % (0-3); HCO3 (ACTUAL BICARBONATE) 24.8 MEQ/L (23-27); INSTRUMENT SERIAL # 11843; METHEMOGLOBIN 0.4 % (0-3); MODE CMV; O2 CONTENT 20.3 VOL% (18-24); OPERATOR ID 32193; PCO2 (CO2 TENSION) 39 MMHG (35-45); PO2 (O2 TENSION) 92 MMHG (79-93); SAMPLE Arterial; TIDAL VOLUME 600 ML; pH 7.43 (7.37-7.43)
[2016-12-07 04:31] LABS: BUN (BLOOD UREA NITROGEN) 38 MG/DL (6-23); GFR AFRICAN AMERICAN 49 ML/MIN (>=60); GFR NON AFRICAN AMERICAN 42 ML/MIN (>=60); GLUCOSE, SERUM 95 MG/DL (60-99); PHOSPHORUS, SERUM 2.3 MG/DL (2.5-4.5)
[2016-12-07 08:40] LABS: BE (BASE EXCESS) 0.3 MEQ/L (0 +/- 2.5); CARBOXYHEMOGLOBIN 0.5 % (0-3); DEVICE NC; HCO3 (ACTUAL BICARBONATE) 23.7 MEQ/L (23-27); HEMOBLOGIN CONTENT 15.2 G/DL (14-18); INSTRUMENT SERIAL # 11843; METHEMOGLOBIN 0.3 % (0-3); O2 CONTENT 20.7 VOL% (18-24); OPERATOR ID 13715; PCO2 (CO2 TENSION) 35 MMHG (35-45); PO2 (O2 TENSION) 101 MMHG (79-93); SAMPLE Arterial; pH 7.45 (7.37-7.43)
[2016-12-07 10:25] LABS: FREE T4 1.59 NG/DL (0.76-1.46); ULTRASENSITIVE TSH 0.341 MCIU/ML (0.358-3.740)
[2016-12-08 03:57] LABS: BASOPHILS 0.2 %; BASOPHILS ABSOLUTE 0.02 10/3/uL (0.0-0.16); EOSINOPHILS 1.8 %; EOSINOPHILS ABSOLUTE 0.23 10/3/uL (0.0-0.53); HEMATOCRIT 39.5 % (40.0-51.0); HEMOGLOBIN 13.2 g/dL (13.6-17.8); IMMATURE GRANULOCYTES 0.6 %; IMMATURE GRANULOCYTES ABSOLUTE 0.07 10/3/uL (0.0-0.11); LYMPHOCYTES 11.8 %; LYMPHOCYTES ABSOLUTE 1.48 10/3/uL (0.67-4.30); MEAN CORPUS HGB CONC 33.4 g/dL (32.0-36.0); MEAN CORPUSCULAR HEMOGLOB 29.9 pg (26.0-34.0); MEAN CORPUSCULAR VOLUME 89.4 fL (80-100); MEAN PLATELET VOLUME 9.4 fL (9.2-13.0); MONOCYTES 8.7 %; MONOCYTES ABSOLUTE 1.09 10/3/uL (0.21-1.20); NEUTROPHILS 76.9 %; NEUTROPHILS ABSOLUTE 9.66 10/3/uL (2.02-8.40); PLATELET COUNT 126 10/3/uL (150-400); RBC DISTRIBUTION WIDTH 16.2 % (12.0-16.0); RED CELL COUNT 4.42 10/6/uL (4.7-6.1); WHITE BLOOD CELLS 12.6 10/3/uL (4.5-10.5)
[2016-12-08 03:59] LABS: MANUAL DIFF NO %
[2016-12-08 04:19] LABS: ALBUMIN 2.1 G/DL (3.5-5.0); CALCIUM, SERUM 7.6 MG/DL (8.5-10.4); CHLORIDE, SERUM 109 MMOL/L (96-112); CO2 (CARBON DIOXIDE) 26 MMOL/L (24-34); CREATININE 1.15 MG/DL (0.70-1.30); GFR AFRICAN AMERICAN 67 ML/MIN (>=60); GFR NON AFRICAN AMERICAN 58 ML/MIN (>=60); PHOSPHORUS, SERUM 2.1 MG/DL (2.5-4.5); POTASSIUM, SERUM 3.9 MMOL/L (3.5-5.3); SODIUM, SERUM 142 MMOL/L (135-148)
[2016-12-08 04:21] LABS: BUN (BLOOD UREA NITROGEN) 31 MG/DL (6-23); GLUCOSE, SERUM 115 MG/DL (60-99)
[2016-12-09 03:57] LABS: HEMATOCRIT 40.4 % (40.0-51.0); HEMOGLOBIN 13.6 g/dL (13.6-17.8); MEAN CORPUS HGB CONC 33.7 g/dL (32.0-36.0); MEAN CORPUSCULAR HEMOGLOB 29.9 pg (26.0-34.0); MEAN CORPUSCULAR VOLUME 88.8 fL (80-100); MEAN PLATELET VOLUME 9.7 fL (9.2-13.0); PLATELET COUNT 151 10/3/uL (150-400); RBC DISTRIBUTION WIDTH 15.7 % (12.0-16.0); RED CELL COUNT 4.55 10/6/uL (4.7-6.1); WHITE BLOOD CELLS 12.9 10/3/uL (4.5-10.5)
[2016-12-09 03:58] LABS: MANUAL DIFF YES %
[2016-12-09 04:16] LABS: CALCIUM, SERUM 7.7 MG/DL (8.5-10.4); CHLORIDE, SERUM 110 MMOL/L (96-112); CO2 (CARBON DIOXIDE) 28 MMOL/L (24-34); CREATININE 1.25 MG/DL (0.70-1.30); GFR AFRICAN AMERICAN 61 ML/MIN (>=60); GFR NON AFRICAN AMERICAN 53 ML/MIN (>=60); GLUCOSE, SERUM 121 MG/DL (60-99); POTASSIUM, SERUM 3.9 MMOL/L (3.5-5.3); SODIUM, SERUM 145 MMOL/L (135-148)
[2016-12-09 04:17] LABS: BUN (BLOOD UREA NITROGEN) 27 MG/DL (6-23)
[2016-12-09 04:31] LABS: BAND NEUTROPHILS 2 %; EOSINOPHILS 2 %; EOSINOPHILS ABSOLUTE (CALC) 0.26 10/3/uL (0.0-0.53); LYMPHOCYTES 12 %; LYMPHOCYTES ABSOLUTE (CALC) 1.55 10/3/uL (0.67-4.30); MONOCYTES 8 %; MONOCYTES ABSOLUTE (CALC) 1.03 10/3/uL (0.21-1.20); NEUTROPHILS ABSOLUTE (CALC) 10.06 10/3/uL (2.02-8.40); PLATELET ESTIMATE ADQ (ADEQUATE); RBC MORPHOLOGY NORM (NORMAL); SEGMENTED NEUTROPHIL (0) 76 %; TOTAL NUCLEATED CELLS 100
[2016-12-10 03:54] LABS: HEMATOCRIT 40.3 % (40.0-51.0); HEMOGLOBIN 13.9 g/dL (13.6-17.8); MEAN CORPUS HGB CONC 34.5 g/dL (32.0-36.0); MEAN CORPUSCULAR HEMOGLOB 30.5 pg (26.0-34.0); MEAN CORPUSCULAR VOLUME 88.4 fL (80-100); MEAN PLATELET VOLUME 10.7 fL (9.2-13.0); NUCLEATED RED BLOOD CELLS 4.4 /100WBC (0-0); PLATELET COUNT 187 10/3/uL (150-400); RBC DISTRIBUTION WIDTH 15.3 % (12.0-16.0); RED CELL COUNT 4.56 10/6/uL (4.7-6.1); WHITE BLOOD CELLS 11.4 10/3/uL (4.5-10.5)
[2016-12-10 03:56] LABS: MANUAL DIFF YES %
[2016-12-10 04:12] LABS: CHLORIDE, SERUM 108 MMOL/L (96-112); CO2 (CARBON DIOXIDE) 25 MMOL/L (24-34); CREATININE 0.99 MG/DL (0.70-1.30); GFR AFRICAN AMERICAN 81 ML/MIN (>=60); GFR NON AFRICAN AMERICAN 70 ML/MIN (>=60); GLUCOSE, SERUM 119 MG/DL (60-99); POTASSIUM, SERUM 3.8 MMOL/L (3.5-5.3); SODIUM, SERUM 142 MMOL/L (135-148)
[2016-12-10 04:13] LABS: BUN (BLOOD UREA NITROGEN) 19 MG/DL (6-23); PHOSPHORUS, SERUM 2.7 MG/DL (2.5-4.5)
[2016-12-10 04:24] LABS: BAND NEUTROPHILS 2 %; EOSINOPHILS 4 %; EOSINOPHILS ABSOLUTE (CALC) 0.46 10/3/uL (0.0-0.53); IMMATURE GRANS ABSOLUTE (CALC) 0.23 10/3/uL (0.0-0.11); LYMPHOCYTES 14 %; METAMYELOCYTES 2 %; MONOCYTES 7 %; NEUTROPHILS ABSOLUTE (CALC) 8.32 10/3/uL (2.02-8.40); SEGMENTED NEUTROPHIL (0) 71 %; TOTAL NUCLEATED CELLS 100
[2016-12-10 04:26] LABS: BURR CELLS 1+ (3-10/OIF) (0-2/OIF); PLATELET ESTIMATE ADQ (ADEQUATE)
[2016-12-11 05:09] LABS: BASOPHILS 0.2 %; BASOPHILS ABSOLUTE 0.02 10/3/uL (0.0-0.16); EOSINOPHILS 4.4 %; EOSINOPHILS ABSOLUTE 0.53 10/3/uL (0.0-0.53); HEMOGLOBIN 13.5 g/dL (13.6-17.8); IMMATURE GRANULOCYTES 1.4 %; IMMATURE GRANULOCYTES ABSOLUTE 0.17 10/3/uL (0.0-0.11); LYMPHOCYTES 11.7 %; LYMPHOCYTES ABSOLUTE 1.42 10/3/uL (0.67-4.30); MANUAL DIFF NO %; MEAN CORPUS HGB CONC 33.8 g/dL (32.0-36.0); MEAN CORPUSCULAR HEMOGLOB 30.3 pg (26.0-34.0); MEAN CORPUSCULAR VOLUME 89.9 fL (80-100); MEAN PLATELET VOLUME 9.7 fL (9.2-13.0); MONOCYTES ABSOLUTE 1.33 10/3/uL (0.21-1.20); NEUTROPHILS 71.3 %; NEUTROPHILS ABSOLUTE 8.67 10/3/uL (2.02-8.40); PLATELET COUNT 180 10/3/uL (150-400); RBC DISTRIBUTION WIDTH 15.2 % (12.0-16.0); RED CELL COUNT 4.45 10/6/uL (4.7-6.1); WHITE BLOOD CELLS 12.1 10/3/uL (4.5-10.5)
[2016-12-11 05:18] LABS: BUN (BLOOD UREA NITROGEN) 19 MG/DL (6-23); CHLORIDE, SERUM 109 MMOL/L (96-112); CO2 (CARBON DIOXIDE) 23 MMOL/L (24-34); CREATININE 1.11 MG/DL (0.70-1.30); GFR AFRICAN AMERICAN 70 ML/MIN (>=60); GFR NON AFRICAN AMERICAN 61 ML/MIN (>=60); GLUCOSE, SERUM 107 MG/DL (60-99); PHOSPHORUS, SERUM 2.5 MG/DL (2.5-4.5); POTASSIUM, SERUM 4.4 MMOL/L (3.5-5.3); SODIUM, SERUM 142 MMOL/L (135-148)
[2016-12-12 06:29] LABS: BASOPHILS 0.2 %; BASOPHILS ABSOLUTE 0.02 10/3/uL (0.0-0.16); EOSINOPHILS 4.3 %; EOSINOPHILS ABSOLUTE 0.56 10/3/uL (0.0-0.53); HEMATOCRIT 37.7 % (40.0-51.0); HEMOGLOBIN 12.6 g/dL (13.6-17.8); IMMATURE GRANULOCYTES 1.3 %; IMMATURE GRANULOCYTES ABSOLUTE 0.17 10/3/uL (0.0-0.11); LYMPHOCYTES 10.6 %; LYMPHOCYTES ABSOLUTE 1.37 10/3/uL (0.67-4.30); MEAN CORPUS HGB CONC 33.4 g/dL (32.0-36.0); MEAN CORPUSCULAR HEMOGLOB 30.1 pg (26.0-34.0); MEAN PLATELET VOLUME 9.5 fL (9.2-13.0); MONOCYTES 11.3 %; MONOCYTES ABSOLUTE 1.47 10/3/uL (0.21-1.20); NEUTROPHILS 72.3 %; NEUTROPHILS ABSOLUTE 9.37 10/3/uL (2.02-8.40); PLATELET COUNT 186 10/3/uL (150-400); RBC DISTRIBUTION WIDTH 15.3 % (12.0-16.0); RED CELL COUNT 4.19 10/6/uL (4.7-6.1)
[2016-12-12 06:32] LABS: MANUAL DIFF NO %
[2016-12-12 07:35] LABS: ALBUMIN 1.9 G/DL (3.5-5.0); BUN (BLOOD UREA NITROGEN) 22 MG/DL (6-23); CHLORIDE, SERUM 107 MMOL/L (96-112); CO2 (CARBON DIOXIDE) 23 MMOL/L (24-34); CREATININE 1.06 MG/DL (0.70-1.30); GFR AFRICAN AMERICAN 74 ML/MIN (>=60); GFR NON AFRICAN AMERICAN 64 ML/MIN (>=60); GLUCOSE, SERUM 120 MG/DL (60-99); PHOSPHORUS, SERUM 2.4 MG/DL (2.5-4.5); POTASSIUM, SERUM 4.2 MMOL/L (3.5-5.3); SODIUM, SERUM 136 MMOL/L (135-148)
== END 2016-12-12 14:03 | DRG 228 ==
LOC: ENRESERVDT → ENRESERV → ENRESERVTM → ER 14:43 → CVICU 18:00 → CCU 18:00 → 5NO 18:00 → SDC/OF 12-05 21:36 → CVICU 12-05 23:21 → SDC/OF 12-10 11:20 → CVICU 12-10 11:33 → 5NO 12-10 13:57
PROVIDERS: Emergency Medicine; Internal Medicine Cardiovascular Disease; Internal Medicine Clinical Cardiac Electrophysiology; Internal Medicine Nephrology; Thoracic Surgery (Cardiothoracic Vascular Surgery)
PROC: 4B02XSZ Measurement of Cardiac Pacemaker, External Approach (ICD-10-PCS; 2016-12-04)
PROC: 02PA0MZ Removal of Cardiac Lead from Heart, Open Approach (ICD-10-PCS; 2016-12-05)
PROC: 0JPT0PZ Removal of Cardiac Rhythm Related Device from Trunk Subcutaneous Tissue and Fascia, Open Approach (ICD-10-PCS; 2016-12-05)
PROC: 30233N1 Transfusion of Nonautologous Red Blood Cells into Peripheral Vein, Percutaneous Approach (ICD-10-PCS; 2016-12-05)
PROC: 0T9B70Z Drainage of Bladder with Drainage Device, Via Natural or Artificial Opening (ICD-10-PCS; 2016-12-06)
PROC: 02HK3NZ Insertion of Intracardiac Pacemaker into Right Ventricle, Percutaneous Approach (ICD-10-PCS; principal; 2016-12-10 07:30)
DX: T82.190A Other mechanical complication of cardiac electrode, initial encounter (principal); J95.821 Acute postprocedural respiratory failure; N17.0 Acute kidney failure with tubular necrosis; J90 Pleural effusion, not elsewhere classified; E87.2 Acidosis; D62 Acute posthemorrhagic anemia; I48.2 Chronic atrial fibrillation; G40.909 Epilepsy, unspecified, not intractable, without status epilepticus; I12.9 Hypertensive chronic kidney disease with stage 1 through stage 4 chronic kidney disease, or unspecified chronic kidney disease; J94.2 Hemothorax; N13.9 Obstructive and reflux uropathy, unspecified; N18.9 Chronic kidney disease, unspecified; R33.9 Retention of urine, unspecified; N40.0 Benign prostatic hyperplasia without lower urinary tract symptoms; Z79.01 Long term (current) use of anticoagulants; Z86.73 Personal history of transient ischemic attack (TIA), and cerebral infarction without residual deficits; Z88.5 Allergy status to narcotic agent; Z87.891 Personal history of nicotine dependence; Z79.899 Other long term (current) drug therapy; Z79.82 Long term (current) use of aspirin; Z00.6 Encounter for examination for normal comparison and control in clinical research program
CPT/HCPCS: 31720; 36415; 51102; 51705; 70450; 71010; 71020; 71250; 74000; 76000; 80048; 80069; 80076; 81001; 82330; 82803; 82805; 82947; 82962; 83735; 84100; 84132; 84295; 84439; 84443; 84481; 84484; 85014; 85018; 85025; 85610; 85730; 86850; 86900; 86901; 86920; 87641; 88300; 93005; 94002; 94003; 94640; 94660; 94770; 95816; 97161-GP; 97166-GO; 99291; A9270-GY; C1769; C1786; C1894; C8929; C9113; G8978-CK-GP; G8979-CJ-GP; G8987-CK-GO; G8988-CJ-GO; J0330; J0690; J1644; J1953; J2250; J2370; J2405; J2550; J2710; J3010; J3475; P9016; Q9957; Q9967